=== PATIENT | female | born 1985 | race African-American/Black ===

== ENCOUNTER 2018-12-16 18:10 | Emergency (ER) | payer SELFPAY | END 2018-12-16 18:38 | disposition home or self-care (01) | LOC: MADERS 18:10 | DX: S09.93XA Unspecified injury of face, initial encounter (principal); E11.9 Type 2 diabetes mellitus without complications; I10 Essential (primary) hypertension; Z79.899 Other long term (current) drug therapy; Z79.84 Long term (current) use of oral hypoglycemic drugs; W22.8XXA Striking against or struck by other objects, initial encounter | CPT/HCPCS: 99283 ==